=== PATIENT | male | born 1950 | race Caucasian/White ===

== ENCOUNTER 2016-11-25 15:10 | Emergency (ER) | payer MEDICARE ==
[2016-11-25 15:22] VITALS: RESP 18
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
[2016-11-25 17:14] VITALS: BP 104/60; PULSE 71; TEMP 99
== END 2016-11-25 17:13 | disposition home or self-care (01) ==
LOC: EC 15:10
DX: S01.81XA Laceration without foreign body of other part of head, initial encounter (principal); G40.909 Epilepsy, unspecified, not intractable, without status epilepticus; F20.9 Schizophrenia, unspecified; F32.9 Major depressive disorder, single episode, unspecified; F17.200 Nicotine dependence, unspecified, uncomplicated; Z79.899 Other long term (current) drug therapy; W01.0XXA Fall on same level from slipping, tripping and stumbling without subsequent striking against object, initial encounter; Y93.01 Activity, walking, marching and hiking; Y92.481 Parking lot as the place of occurrence of the external cause
CPT/HCPCS: 12011; 70450; 72125; 99284

== ENCOUNTER 2017-05-20 17:07 | Emergency (ER) | payer MEDICARE ==
[2017-05-20] MEDS ORDERED: SODIUM CHLORIDE 0.9% 1,000 ML IV STA (17:11)
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
[2017-05-20 18:03] LABS: Basophils # (A) 0.1 k/uL (0-0.2); Basophils % (A) 1 %; CH 32.7; CHCM 34.7; Eosinophils # (A) 0.2 k/uL (0-0.7); Eosinophils % (A) 2 %; HCT 34.7 % (39.0-53.0); HDW 2.32; HGB 12.1 gm/dL (13.0-17.5); Luc # (Auto) 0.16; Luc % (Auto) 2; Lymphocytes # (A) 1.5 k/uL (1.0-4.8); Lymphocytes % (A) 22 %; MCH 33.1 pg (25.0-35.0); MCV 94.6 fL (80.0-100.0); Mean Platelet Volume 7.1; Monocytes # (A) 0.5 k/uL (0-1.0); Monocytes % (A) 7 %; Neutrophils # (A) 4.5 k/uL (1.3-7.7); Neutrophils % (A) 66 %; RBC 3.66 m/uL (4.30-5.90); RDW 13.7 % (11.5-15.5); WBC 6.9 k/uL (3.8-10.6); WBC (Perox) 6.78
[2017-05-20 18:17] LABS: Alcohol <10 mg/dL; Magnesium 1.7 mg/dL (1.6-2.3)
[2017-05-20] MEDS ORDERED: PHENYTOIN SODIUM INJ 1,000 MG in SODIUM CHLORIDE 0.9% 100 ML IVPB STA (18:42)
--- NOTE | 2017-05-20 18:45 | XR ---
EXAMINATION TYPE: XR shoulder complete LT DATE OF EXAM: 05/20/2017 CLINICAL HISTORY: Left shoulder pain after fall injury. TECHNIQUE: Three views of the left shoulder are obtained. COMPARISON: Left shoulder x-ray March 16, 2016. FINDINGS: There is no acute fracture/dislocation evident in the left shoulder. Osseous structures ar e demineralized. Old healed fracture deformity of mid to distal left clavicle is redemonstrated. Acro mioclavicular joint is maintained. There is advanced joint space loss left glenohumeral joint redemon strated. There is sclerosis and subchondral cystic change in the humeral head redemonstrated at the g lenohumeral joint articulation. The visualized ribs are intact and unremarkable. IMPRESSION: There is no acute fracture or dislocation in the left shoulder. No significant change fr om prior study.
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
[2017-05-20 19:20] LABS: ALT 21 U/L (21-72); AST 23 U/L (17-59); Alkaline Phosphatase 102 U/L (38-126); Anion Gap 8 mmol/L; Blood Urea Nitrogen 13 mg/dL (9-20); Calcium 9.1 mg/dL (8.4-10.2); Carbon Dioxide 18 mmol/L (22-30); Chloride 106 mmol/L (98-107); Glucose 98 mg/dL (74-99); Non-African American GFR(MDRD) >60 (>60 ml/min/1.73 sqM); Potassium 4.2 mmol/L (3.5-5.1); Sodium 132 mmol/L (137-145); Total Bilirubin 0.3 mg/dL (0.2-1.3)
[2017-05-20] MEDS ORDERED: levETIRAcetam 500 MG TAB PO STA (19:23)
[2017-05-20 20:00] VITALS: BP 129/77; PULSE 70; RESP 20; TEMP 97.3
== END 2017-05-20 20:05 | disposition home or self-care (01) ==
LOC: EC 17:07
DX: R56.9 Unspecified convulsions (principal); R79.1 Abnormal coagulation profile; J44.9 Chronic obstructive pulmonary disease, unspecified; F20.9 Schizophrenia, unspecified; F32.9 Major depressive disorder, single episode, unspecified; F17.200 Nicotine dependence, unspecified, uncomplicated; Z79.899 Other long term (current) drug therapy
CPT/HCPCS: 36415; 93005; 80053; 80185; 83735; 85025; 80320; 73030; 72125; 70450; 99285; 96365; J1165

== ENCOUNTER 2017-06-14 17:23 | Emergency (ER) | payer MEDICARE ==
[2017-06-14 18:02] VITALS: RESP 18
[2017-06-14] MEDS ORDERED: LORazepam 2 MG/ML SYRINGE IV STA (18:11)
[2017-06-14] MEDS ORDERED: SODIUM CHLORIDE 0.9% 1,000 ML IV STA (18:11)
[2017-06-14] MEDS ORDERED: SODIUM CHLORIDE 0.9% 1,000 ML IV ONE (18:11)
[2017-06-14] MEDS ORDERED: levETIRAcetam IV 1,000 MG in SALINE 1 100ML.BAG IVPB STA (18:15)
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
[2017-06-14 19:58] VITALS: BP 124/70; PULSE 74; TEMP 98.2
--- NOTE | 2017-06-14 19:58 | ED ---
Medical Decision Making - Medical Decision Making 67 male the ER for evaluation. At this time patient is refusing at IV attempts patient states that he currently is has seizures, he would like to be discharged home Disposition Clinical Impression: Epileptic seizure, Confusion after a seizure, Generalized seizure Disposition: HOME SELF-CARE Condition: Fair Instructions: Recurrent Seizures in Adults (ED) Referrals: Braxton Moore MD [Primary Care Provider] - 1-2 days
[2017-06-15] MEDS ORDERED: ENOXAPARIN 40 MG/0.4 ML SYRINGE SQ SCH (09:00)
== END 2017-06-14 19:45 | disposition home or self-care (01) ==
LOC: EC 17:23
DX: G40.909 Epilepsy, unspecified, not intractable, without status epilepticus (principal); R41.0 Disorientation, unspecified; F20.9 Schizophrenia, unspecified; F32.9 Major depressive disorder, single episode, unspecified; F17.200 Nicotine dependence, unspecified, uncomplicated; Z79.899 Other long term (current) drug therapy
CPT/HCPCS: 99284

== ENCOUNTER 2017-06-15 02:58 | Emergency (ER) | payer MEDICARE ==
[2017-06-15 03:06] VITALS: RESP 18
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
[2017-06-15 03:47] LABS: Basophils # (A) 0.1 k/uL (0-0.2); Basophils % (A) 1 %; CH 33.8; CHCM 35.3; Eosinophils # (A) 0.1 k/uL (0-0.7); Eosinophils % (A) 1 %; HDW 2.23; Luc # (Auto) 0.17; Luc % (Auto) 2; Lymphocytes # (A) 1.8 k/uL (1.0-4.8); Lymphocytes % (A) 18 %; MCH 33.1 pg (25.0-35.0); MCHC 34.4 g/dL (31.0-37.0); MCV 96.2 fL (80.0-100.0); Mean Platelet Volume 7.3; Monocytes # (A) 0.7 k/uL (0-1.0); Monocytes % (A) 7 %; Neutrophils # (A) 7.1 k/uL (1.3-7.7); Neutrophils % (A) 72 %; RBC 3.63 m/uL (4.30-5.90); RDW 14.2 % (11.5-15.5); WBC 9.9 k/uL (3.8-10.6); WBC (Perox) 10.67
[2017-06-15 03:58] LABS: ALT 38 U/L (21-72); AST 29 U/L (17-59); Alcohol <10 mg/dL; Alkaline Phosphatase 101 U/L (38-126); Anion Gap 8 mmol/L; Blood Urea Nitrogen 15 mg/dL (9-20); Calcium 9.2 mg/dL (8.4-10.2); Carbon Dioxide 20 mmol/L (22-30); Chloride 100 mmol/L (98-107); Glucose 93 mg/dL (74-99); Non-African American GFR(MDRD) >60 (>60 ml/min/1.73 sqM); Potassium 3.9 mmol/L (3.5-5.1); Sodium 128 mmol/L (137-145); Total Bilirubin 0.5 mg/dL (0.2-1.3); Total Protein 6.5 g/dL (6.3-8.2)
[2017-06-15] MEDS ORDERED: levETIRAcetam 500 MG TAB PO STA (04:39)
[2017-06-15 05:24] VITALS: BP 130/89; PULSE 79; TEMP 98.6
== END 2017-06-15 06:16 | disposition home or self-care (01) ==
LOC: EC 02:58
DX: G40.409 Other generalized epilepsy and epileptic syndromes, not intractable, without status epilepticus (principal); F32.9 Major depressive disorder, single episode, unspecified; F20.9 Schizophrenia, unspecified; F17.200 Nicotine dependence, unspecified, uncomplicated; Z79.899 Other long term (current) drug therapy
CPT/HCPCS: 36415; 80053; 80185; 80306; 80320; 85025; 99284

== ENCOUNTER 2017-09-28 19:35 | Emergency (ER) | payer MEDICARE ==
[2017-09-28 19:43] VITALS: RESP 18
[2017-09-28] MEDS ORDERED: SODIUM CHLORIDE 0.9% 1,000 ML IV SCH (20:00)
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
[2017-09-28 20:50] LABS: Basophils # (A) 0.1 k/uL (0-0.2); Basophils % (A) 1 %; Eosinophils # (A) 0.5 k/uL (0-0.7); Eosinophils % (A) 4 %; HCT 34.7 % (39.0-53.0); HGB 11.7 gm/dL (13.0-17.5); Lymphocytes % (A) 19 %; MCH 31.6 pg (25.0-35.0); MCHC 33.9 g/dL (31.0-37.0); MCV 93.3 fL (80.0-100.0); Mean Platelet Volume 7.3; Monocytes # (A) 0.8 k/uL (0-1.0); Monocytes % (A) 7 %; Neutrophils # (A) 6.9 k/uL (1.3-7.7); Neutrophils % (A) 67 %; Platelet Count 327 k/uL (150-450); RBC 3.72 m/uL (4.30-5.90); RDW 14.4 % (11.5-15.5); WBC 10.3 k/uL (3.8-10.6)
[2017-09-28 21:04] LABS: Anion Gap 8 mmol/L; Blood Urea Nitrogen 14 mg/dL (9-20); Calcium 9.1 mg/dL (8.4-10.2); Carbon Dioxide 21 mmol/L (22-30); Chloride 101 mmol/L (98-107); Glucose 82 mg/dL (74-99); Potassium 4.4 mmol/L (3.5-5.1); Sodium 130 mmol/L (137-145)
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
[2017-09-28 22:13] LABS: Amphetamine Screen,Urine Not Detected (NotDetected); Barbiturate Screen,Urine Detected (NotDetected); Benzodiazepines Screen,Urine Not Detected (NotDetected); Cocaine Screen,Urine Not Detected (NotDetected); Methadone Screen, Urine Not Detected (NotDetected); Opiate Screen,Urine Not Detected (NotDetected); Oxycodone Screen, Urine Not Detected (NotDetected); Phencyclidine Screen,Urine Not Detected (NotDetected); Tricyclic Antidepressant,Urine Not Detected (NotDetected); Urn Cannabinoid Scrn Not Detected (NotDetected)
[2017-09-28 23:22] VITALS: BP 140/77; PULSE 88; TEMP 98.8
[2017-09-29] MEDS ORDERED: levETIRAcetam 500 MG TAB PO STA (00:55)
== END 2017-09-29 01:27 | disposition home or self-care (01) ==
LOC: EC 19:35
DX: G40.909 Epilepsy, unspecified, not intractable, without status epilepticus (principal); F43.22 Adjustment disorder with anxiety; S00.81XA Abrasion of other part of head, initial encounter; F20.9 Schizophrenia, unspecified; F17.200 Nicotine dependence, unspecified, uncomplicated; Z79.899 Other long term (current) drug therapy
CPT/HCPCS: 36415; 70450; 72125; 80048; 80177; 80184; 80185; 80306; 82075; 85025; 96360; 96361; 99285

== ENCOUNTER 2018-02-26 20:18 | Inpatient (IN) | payer MEDICARE ==
[2018-02-26] MEDS ORDERED: SODIUM CHLORIDE 0.9% 1,000 ML IV STA (20:20)
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
[2018-02-26] MEDS ORDERED: LORazepam 2 MG/ML INJ IV STA (21:49)
[2018-02-26 21:59] LABS: Appearance,Urine Clear (Clear); Bilirubin,Urine Negative (Negative); Blood,Urine Moderate (Negative); Color,Urine Yellow; Glucose,Urine (UA) Negative (Negative); Hyaline Casts,Urine 21 /lpf (0-2); Ketones,Urine 1+ (Negative); Leukocyte Esterase,Urine Negative (Negative); Mucus,Urine Rare /hpf; Nitrite,Urine Negative (Negative); PH, Urine 6.5 (5.0-8.0); Protein,Urine 4+ (Negative); RBC,Urine 28 /hpf (0-5); Specific Gravity,Urine 1.016 (1.001-1.035); WBC,Urine 5 /hpf (0-5)
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
--- NOTE | 2018-02-26 22:01 | XR ---
EXAMINATION TYPE: XR shoulder complete LT DATE OF EXAM: 02/26/2018 COMPARISON: May 20, 2017 HISTORY: Left shoulder pain TECHNIQUE: 3 views FINDINGS: There is narrowing of the glenohumeral joint space with spur formation. I see no fracture n or dislocation. There is old healed left clavicle fracture. 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 No fracture. No significant change compared to old exam.
[2018-02-26 22:10] LABS: Basophils % (A) 0 %; Eosinophils # (A) 0.1 k/uL (0-0.7); Eosinophils % (A) 1 %; HCT 35.9 % (39.0-53.0); HGB 12.5 gm/dL (13.0-17.5); Lymphocytes # (A) 1.7 k/uL (1.0-4.8); Lymphocytes % (A) 17 %; MCHC 34.9 g/dL (31.0-37.0); MCV 91.8 fL (80.0-100.0); Mean Platelet Volume 6.6; Monocytes # (A) 0.6 k/uL (0-1.0); Monocytes % (A) 6 %; Neutrophils # (A) 7.4 k/uL (1.3-7.7); Neutrophils % (A) 74 %; Platelet Count 371 k/uL (150-450); RBC 3.91 m/uL (4.30-5.90); RDW 13.6 % (11.5-15.5); WBC 9.9 k/uL (3.8-10.6)
[2018-02-26 22:23] LABS: ALT 59 U/L (21-72); AST 63 U/L (17-59); Albumin 3.9 g/dL (3.5-5.0); Alcohol <10 mg/dL; Alkaline Phosphatase 85 U/L (38-126); Anion Gap 11 mmol/L; Blood Urea Nitrogen 12 mg/dL (9-20); Calcium 9.4 mg/dL (8.4-10.2); Carbon Dioxide 20 mmol/L (22-30); Chloride 97 mmol/L (98-107); Glucose 111 mg/dL (74-99); Phenytoin (Dilantin) <3.0 ug/mL; Potassium 4.5 mmol/L (3.5-5.1); Sodium 128 mmol/L (137-145); Total Bilirubin 0.5 mg/dL (0.2-1.3); Total Protein 6.5 g/dL (6.3-8.2)
[2018-02-26] MEDS ORDERED: PHENYTOIN SODIUM EXTENDED 100 MG CAP PO STA (22:31)
[2018-02-26] MEDS ORDERED: LORazepam 2 MG/ML INJ IV PRN ×3 (22:51)
[2018-02-26] MEDS ORDERED: NALOXONE 0.4 MG/ML 1 ML VIAL IV PRN (22:52)
[2018-02-26] MEDS ORDERED: levETIRAcetam IV 1,000 MG in SALINE 1 100ML.BAG IVPB STA (22:52)
[2018-02-26] MEDS: SODIUM CHLORIDE 0.9% 1,000 ML IV SCH (23:16)
[2018-02-27] MEDS: PHENYTOIN SODIUM EXTENDED 100 MG CAP PO SCH ×2 (08:14→20:43)
[2018-02-27] MEDS: risperiDONE 1 MG TAB PO SCH (08:15)
[2018-02-27] MEDS: PHENobarbital 64.8 MG TAB PO SCH ×2 (09:30→20:49)
[2018-02-27] MEDS: SODIUM CHLORIDE 0.9% 1,000 ML IV SCH (10:53)
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
[2018-02-27] MEDS: ATORVASTATIN 40 MG TAB PO SCH (20:43)
[2018-02-28] MEDS: SODIUM CHLORIDE 0.9% 1,000 ML IV SCH ×2 (03:48→16:12)
[2018-02-28] MEDS: PHENYTOIN SODIUM EXTENDED 100 MG CAP PO SCH ×2 (07:54→22:12)
[2018-02-28] MEDS: risperiDONE 1 MG TAB PO SCH (07:54)
[2018-02-28] MEDS: PHENobarbital 64.8 MG TAB PO SCH ×2 (07:57→22:15)
[2018-02-28 10:05] LABS: Anion Gap 9 mmol/L; Blood Urea Nitrogen 16 mg/dL (9-20); Carbon Dioxide 20 mmol/L (22-30); Chloride 106 mmol/L (98-107); Glucose 198 mg/dL (74-99); Phenytoin (Dilantin) <3.0 ug/mL; Potassium 4.4 mmol/L (3.5-5.1); Sodium 135 mmol/L (137-145)
[2018-02-28] MEDS ORDERED: PHENYTOIN SODIUM INJ 1,000 MG in SODIUM CHLORIDE 0.9% 100 ML IVPB STA (13:01)
[2018-02-28 14:04] VITALS: RESP 16
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
[2018-02-28] MEDS: ATORVASTATIN 40 MG TAB PO SCH (22:12)
[2018-03-01] MEDS: SODIUM CHLORIDE 0.9% 1,000 ML IV SCH (05:20)
[2018-03-01] MEDS: PHENYTOIN SODIUM EXTENDED 100 MG CAP PO SCH (09:10)
[2018-03-01] MEDS: PHENobarbital 64.8 MG TAB PO SCH (09:10)
[2018-03-01] MEDS: risperiDONE 1 MG TAB PO SCH (09:10)
[2018-03-01 15:16] VITALS: BP 113/75; PULSE 75; TEMP 98.2
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
== END 2018-03-01 15:57 | disposition home or self-care (01) | DRG 101 ==
LOC: EC 20:18 → 4MS4W 22:52
PROVIDERS: ADMIT Family Medicine; ATTEND Family Medicine
DX: G40.409 Other generalized epilepsy and epileptic syndromes, not intractable, without status epilepticus (principal); E87.1 Hypo-osmolality and hyponatremia; F10.20 Alcohol dependence, uncomplicated; F17.200 Nicotine dependence, unspecified, uncomplicated; F20.9 Schizophrenia, unspecified; F32.9 Major depressive disorder, single episode, unspecified; G89.29 Other chronic pain; J44.9 Chronic obstructive pulmonary disease, unspecified; Z91.5 Personal history of self-harm; Z79.899 Other long term (current) drug therapy; Z87.81 Personal history of (healed) traumatic fracture
CPT/HCPCS: 36415; 70450; 80048; 80053; 80185; 80320; 81001; 85025; 93005; 94760; 96361; 96374; 96375; 99285

== ENCOUNTER 2018-11-18 06:15 | Emergency (ER) | payer MEDICARE ==
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
[2018-11-18] MEDS ORDERED: NICOTINE 14MG/24HR PATCH TRANSDERM STA (06:42)
[2018-11-18 07:22] LABS: Basophils % (A) 0 %; Eosinophils # (A) 0.2 k/uL (0-0.7); Eosinophils % (A) 1 %; HCT 39.6 % (39.0-53.0); HGB 13.2 gm/dL (13.0-17.5); Lymphocytes # (A) 1.3 k/uL (1.0-4.8); Lymphocytes % (A) 9 %; MCH 31.1 pg (25.0-35.0); MCHC 33.4 g/dL (31.0-37.0); Mean Platelet Volume 6.1; Monocytes # (A) 0.8 k/uL (0-1.0); Monocytes % (A) 5 %; Neutrophils # (A) 11.8 k/uL (1.3-7.7); Neutrophils % (A) 83 %; Platelet Count 371 k/uL (150-450); RBC 4.25 m/uL (4.30-5.90); RDW 13.8 % (11.5-15.5); WBC 14.2 k/uL (3.8-10.6)
[2018-11-18 07:27] LABS: ALT 54 U/L (21-72); AST 102 U/L (17-59); Acetaminophen <10.0 ug/mL; Albumin 3.5 g/dL (3.5-5.0); Alcohol <10 mg/dL; Alkaline Phosphatase 75 U/L (38-126); Anion Gap 9 mmol/L; Blood Urea Nitrogen 18 mg/dL (9-20); Calcium 9.2 mg/dL (8.4-10.2); Carbon Dioxide 19 mmol/L (22-30); Chloride 103 mmol/L (98-107); Glucose 133 mg/dL (74-99); Potassium 4.6 mmol/L (3.5-5.1); Salicylate <1.0 mg/dL; Sodium 131 mmol/L (137-145); Total Bilirubin 0.7 mg/dL (0.2-1.3); Total Protein 6.5 g/dL (6.3-8.2)
[2018-11-18 07:37] VITALS: RESP 16
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
[2018-11-18 10:00] LABS: Amorphous Sediment,Urine Rare /hpf; Appearance,Urine Clear (Clear); Bacteria,Urine Occasional /hpf; Bilirubin,Urine Negative (Negative); Blood,Urine Moderate (Negative); Budding Yeast,Urine Rare /hpf; Color,Urine Light Red; Glucose,Urine (UA) Negative (Negative); Hyaline Casts,Urine 32 /lpf (0-2); Ketones,Urine Negative (Negative); Leukocyte Esterase,Urine Negative (Negative); Mucus,Urine Rare /hpf; Nitrite,Urine Negative (Negative); Protein,Urine 3+ (Negative); RBC,Urine 27 /hpf (0-5); Specific Gravity,Urine 1.015 (1.001-1.035); Squamous Epithelial Cell,Urine <1 /hpf (0-4); Urobilinogen,Urine <2.0 mg/dL (<2.0); WBC,Urine 4 /hpf (0-5)
[2018-11-18 10:05] LABS: Amphetamine Screen,Urine Not Detected (NotDetected); Barbiturate Screen,Urine Detected (NotDetected); Benzodiazepines Screen,Urine Not Detected (NotDetected); Cocaine Screen,Urine Not Detected (NotDetected); Methadone Screen, Urine Not Detected (NotDetected); Opiate Screen,Urine Not Detected (NotDetected); Oxycodone Screen, Urine Not Detected (NotDetected); Phencyclidine Screen,Urine Not Detected (NotDetected); Tricyclic Antidepressant,Urine Not Detected (NotDetected); Urn Cannabinoid Scrn Not Detected (NotDetected)
[2018-11-18 10:58] VITALS: BP 130/80; PULSE 67; TEMP 97.9
== END 2018-11-18 10:57 | disposition home or self-care (01) ==
LOC: EC 06:15
DX: R41.0 Disorientation, unspecified (principal); F32.9 Major depressive disorder, single episode, unspecified; F20.9 Schizophrenia, unspecified; F17.210 Nicotine dependence, cigarettes, uncomplicated; Z86.69 Personal history of other diseases of the nervous system and sense organs
CPT/HCPCS: 82075; 36415; 80053; 83605; 85025; 81001; 80306; 83520 ×2; 70450; 99285; G0480; S4990; 80320

== ENCOUNTER 2019-01-17 11:21 | Emergency (ER) | payer MEDICARE ==
[2019-01-17] MEDS ORDERED: SODIUM CHLORIDE 0.9% 500 ML 500 ML IV STA (11:29)
[2019-01-17 11:37] VITALS: TEMP 97.9
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
[2019-01-17] MEDS ORDERED: levETIRAcetam IV 1,000 MG in SALINE 1 100ML.BAG IVPB STA (12:35)
[2019-01-17 12:43] LABS: Basophils % (A) 1 %; Eosinophils # (A) 0.1 k/uL (0-0.7); Eosinophils % (A) 1 %; HCT 41.2 % (39.0-53.0); HGB 13.5 gm/dL (13.0-17.5); Lymphocytes % (A) 15 %; MCHC 32.7 g/dL (31.0-37.0); MCV 91.7 fL (80.0-100.0); Mean Platelet Volume 7.1; Monocytes # (A) 0.3 k/uL (0-1.0); Monocytes % (A) 5 %; Neutrophils % (A) 76 %; Platelet Count 409 k/uL (150-450); RBC 4.49 m/uL (4.30-5.90); RDW 14.8 % (11.5-15.5); WBC 6.5 k/uL (3.8-10.6)
[2019-01-17 12:57] LABS: ALT 31 U/L (21-72); AST 24 U/L (17-59); Albumin 3.4 g/dL (3.5-5.0); Alkaline Phosphatase 65 U/L (38-126); Anion Gap 5 mmol/L; Blood Urea Nitrogen 17 mg/dL (9-20); Calcium 9.4 mg/dL (8.4-10.2); Carbon Dioxide 26 mmol/L (22-30); Chloride 103 mmol/L (98-107); Glucose 125 mg/dL (74-99); Potassium 4.4 mmol/L (3.5-5.1); Sodium 134 mmol/L (137-145); Total Bilirubin 0.5 mg/dL (0.2-1.3); Total Protein 6.2 g/dL (6.3-8.2)
[2019-01-17 14:04] VITALS: BP 164/91; PULSE 62; RESP 14
== END 2019-01-17 14:22 | disposition home or self-care (01) ==
LOC: EC 11:21
DX: G40.409 Other generalized epilepsy and epileptic syndromes, not intractable, without status epilepticus (principal); F17.200 Nicotine dependence, unspecified, uncomplicated; Z79.899 Other long term (current) drug therapy
CPT/HCPCS: 36415; 93005; 80053; 85025; 70450; 99285; 96374; 96361; J1953